=== PATIENT | female | born 1990 | race Caucasian/White ===

== ENCOUNTER 2016-10-29 12:30 | Emergency (ER) | payer OTHER ==
[2016-10-29] MEDS ORDERED: DEXAMETHASONE 10 MG/ML VIAL PO STA (13:19)
[2016-10-29] MEDS ORDERED: IPRATROPIUM/ALBUTEROL 3 ML NEB INH STA ×2 (13:19→14:42)
[2016-10-29] MEDS ORDERED: DEXAMETHASONE 10 MG/ML VIAL ONE (13:26)
[2016-10-29] MEDS ORDERED: CHERRY SYRUP 10 ML UDC PO ONE (13:30)
[2016-10-29] MEDS ORDERED: IPRATROPIUM/ALBUTEROL 3 ML NEB INH ONE ×2 (13:43→14:57)
[2016-10-29] MEDS ORDERED: cefTRIAXone 1 GM VIAL IM STA (14:29)
[2016-10-29] MEDS ORDERED: cefTRIAXone 1 GM VIAL ONE (14:32)
[2016-10-29] MEDS ORDERED: LIDOCAINE-MPF 1% 5 ML VIAL ONE (14:32)
== END 2016-10-29 15:30 | disposition home or self-care (01) ==
DX: J45.901 Unspecified asthma with (acute) exacerbation (principal); H66.006 Acute suppurative otitis media without spontaneous rupture of ear drum, recurrent, bilateral; Z87.891 Personal history of nicotine dependence
CPT/HCPCS: 71020; 94640; 94664; 96372; 99283; 99284; A9270; J7620

== ENCOUNTER 2018-01-08 01:52 | Emergency (ER) | payer OTHER ==
[2018-01-08 02:00] VITALS: BP 140/73
[2018-01-08] MEDS ORDERED: SULFAMETH/TRIMETH DS 800/160 MG TABLET PO STA (02:32)
[2018-01-08] MEDS ORDERED: cephALEXin 250 MG CAPSULE PO STA (02:32)
--- NOTE | 2018-01-08 02:35 | ED Physician Documentation ---
PD HPI SKIN - Stated complaint Stated Complaint: R LEG PAIN - Chief complaint Chief Complaint: Ext Problem - History obtained from History obtained from: Patient - History of Present Illness Timing - onset: How many days ago (4) Timing - details: Gradual onset, Still present Location: RLE Quality / character: Painful, Burning Associated symptoms: No: Fever Similar symptoms before: Work up / diagnostics Recently seen: Not recently seen - Additional information Additional information: Patient is a 27 year old female with no significant past medical history who is presenting to the emergency department for lesion on her right lower extremity. Patient states that she was shaving her legs about 5 days ago and she cut it. Patient subsequently has developed a red, painful streaking rash around the area. Patient states that she has had cellulitis in the past. Review of Systems Ten Systems: 10 systems reviewed and negative Constitutional: denies: Fever, Chills Skin: reports: Lesions Musculoskeletal: reports: Extremity pain PD PAST MEDICAL HISTORY - Past Medical History Respiratory: Asthma Psych: Depression - Past Surgical History Past Surgical History: Yes General: Cholecystectomy - Present Medications Home Medications: Ambulatory Orders Medication Instructions Recorded Confirmed Bupropion HCl [Wellbutrin] 09/25/15 09/25/15 Albuterol Sulf [Ventolin Hfa 1 - 2 puffs INH Q4HR PRN #1 inhaler 10/29/16 Inhaler] Albuterol Sulfate [Proair Hfa 1 - 2 puffs INH Q4H PRN 10/29/16 10/29/16 Inhaler] Azithromycin [Zithromax] 250 mg PO DAILY #6 tablet 10/29/16 Benzonatate 100 mg PO 10/29/16 Ibuprofen [Motrin] 600 mg PO Q6H PRN 10/29/16 10/29/16 Naproxen Sodium 220 mg PO 10/29/16 Pseudoephedrine [Sudafed] 30 mg PO Q6H 10/29/16 10/29/16 predniSONE [Deltasone] 10 mg PO DAILY #26 tablet 10/29/16 Cephalexin [Keflex] 500 mg PO Q6H 7 Days capsule 01/08/18 Sulfamethox/Trimeth 800/160 1 each PO BID #14 tablet 01/08/18 [Bactrim Ds 800/160] - Allergies Allergies/Adverse Reactions: Allergies Allergy/AdvReac Type Severity Reaction Status Date / Time hydrocodone bitartrate * AdvReac Unknown Nausea Verified 01/08/18 02:00 [From Vicodin] propoxyphene napsylate * AdvReac Unknown Rash Verified 01/08/18 02:00 [From Darvocet-N 100] - Social History Does the pt smoke?: No Smoking Status: Never smoker Does the pt drink ETOH?: No Does the pt have substance abuse?: No - Immunizations Immunizations are current?: Yes - POLST Patient has POLST: No PD ED PE NORMAL - Vitals Vital signs reviewed: Yes - General General: Alert and oriented X 3 - HEENT HEENT: Atraumatic - Cardiac Cardiac: RRR - Respiratory Respiratory: No respiratory distress - Abdomen Abdomen: Non distended - Neuro Neuro: Alert and oriented X 3 Eye Opening: Spontaneous PD ED PE EXPANDED - Extremities JETT LE visual: 1 - rash (abrasion from the razor with surrounding cellulitis) Results - Vitals Vitals: Vital Signs - 24 hr 01/08/18 01:59 Temperature 36.1 C L Heart Rate 70 Respiratory 16 Rate Blood Pressure 140/73 H O2 Saturation 100 Oxygen O2 Source Room air PD MEDICAL DECISION MAKING - ED course Complexity details: reviewed old records, reviewed results, re-evaluated patient , considered differential, d/w patient ED course: patient was seen and examined at bedside. Patient was found to have cellulitis. Patient was treated with bactrim and keflex for fear of MRSA. patient was otherwise well appearing with normal vital signs. patient required no further work up and was stable for discharge with outpatient follow up. Departure - Departure Disposition: 01 Home, Self Care Clinical Impression: Cellulitis Condition: Good Instructions: ED Infec Skin Cellulitis Follow-Up: primary,care provider [Other] - Within 3 Days Prescriptions: Cephalexin [Keflex] 500 mg PO Q6H 7 Days capsule Sulfamethox/Trimeth 800/160 [Bactrim Ds 800/160] 1 each PO BID #14 tablet Comments: Your symptoms today are being caused by cellulitis or skin infection. You have been prescribed two different antibiotics. You will need to take them with food and make sure you take the entire course. You should keep the wound clean and dry. You can apply topical antibiotics as needed. You can take motrin or tylenol as needed for pain. You should follow up with your doctor for a wound check if the symptoms don't improve in the next 48 hours.
[2018-01-08] MEDS ORDERED: IBUPROFEN 600 MG TABLET PO STA (02:40)
[2018-01-08] MEDS ORDERED: TETANUS/DIPHTHERIA/PERTUSSIS 0.5 ML SYRINGE IM ONE (02:45)
== END 2018-01-08 02:57 | disposition home or self-care (01) ==
LOC: ED 01:52
DX: L03.115 Cellulitis of right lower limb (principal); S80.811A Abrasion, right lower leg, initial encounter; W45.8XXA Other foreign body or object entering through skin, initial encounter; Y93.E8 Activity, other personal hygiene; Z23 Encounter for immunization
CPT/HCPCS: 90471; 90715; 99283; A9270; 96372